=== PATIENT | female | born 1995 | race Caucasian/White ===

== ENCOUNTER → 2016-11-03 | Outpatient (CLI) | payer BC ==
[2016-11-03 16:06] LABS: BASO % 0.1 %; BASO ABS # 0.01 K/uL (0-0.2); COMPLETE YES; EOS % 1.9 %; HEMATOCRIT 38.9 % (37-47); IG% 0.2 %; LYMPH % 7.9 %; LYMPH ABS # 0.92 K/uL (1.2-3.4); MEAN CELL VOLUME 88.4 fL (80-100); MEAN CORPUSCULAR HEMOGLOBIN 29.8 pg (25-34); MEAN CORPUSCULAR HGB CONC 33.7 g/dl (32-36); MEAN PLATELET VOLUME 10.5 fL (7.4-10.4); MONO % 4.5 %; NEUT % 85.4 %; PLATELET COUNT 311 K/uL (130-400); WHITE BLOOD COUNT 11.61 K/uL (4.8-10.8)
[2016-11-03 18:40] LABS: URINE APPEARANCE CLEAR (CLEAR); URINE BILIRUBIN NEG (NEG); URINE COLOR YELLOW; URINE NITRITE NEG (NEG); URINE SPECIFIC GRAVITY 1.018 (1.000-1.030); UROBILINOGEN NEG (NEG)
[2016-11-03 18:55] LABS: MANUAL MICROSCOPIC REQUIRED? NO; REVIEW REQ? NO
[2016-11-05 22:59] LABS: CHLAMYDIA TRACH RNA*** NOT DETECTED (NOT DETECTED); GC (NEIS GONORRHOEAE)RNA** NOT DETECTED (NOT DETECTED)
== END | disposition home or self-care (01) ==
LOC: C.LAB1850 15:22
PROVIDERS: ATTEND Obstetrics & Gynecology
DX: Z34.01 Encounter for supervision of normal first pregnancy, first trimester (principal)

== ENCOUNTER → 2016-12-31 | Outpatient (CLI) | payer BC ==
[2016-12-31 12:04] LABS: GTGD 50 Grams
== END | disposition home or self-care (01) ==
LOC: C.LAB1850 09:17
PROVIDERS: ATTEND Obstetrics & Gynecology
DX: Z34.02 Encounter for supervision of normal first pregnancy, second trimester (principal)

== ENCOUNTER 2017-03-01 03:04 | Outpatient (CLI) | payer BC ==
[~2017-03-01] VITALS: Ht 165.1 cm; Wt 71.8 kg
[2017-03-01 03:32] VITALS: Ht 165.1 cm; Wt 71.8 kg
[2017-03-01] MEDS ORDERED: PRENTAB26 PO (03:32)
== END 2017-03-01 04:59 | disposition home or self-care (01) ==
LOC: C.OPB 03:04 → C.LD 03:04 → C.OPB 04:59
PROVIDERS: ATTEND Obstetrics & Gynecology
DX: O46.92 Antepartum hemorrhage, unspecified, second trimester (principal); Z3A.25 25 weeks gestation of pregnancy

== ENCOUNTER → 2017-03-26 | Outpatient (CLI) | payer BC ==
[~2017-03-26] MED LIST: PRENTAB26 PO
[2017-03-26 12:10] LABS: HEMATOCRIT 38.8 % (37-47)
== END | disposition home or self-care (01) ==
LOC: C.LAB1850 09:54
PROVIDERS: ATTEND Obstetrics & Gynecology
DX: Z34.03 Encounter for supervision of normal first pregnancy, third trimester (principal)

== ENCOUNTER 2017-06-03 07:32 | Inpatient (IN) | payer BC ==
[~2017-06-03] VITALS: Ht 165.1 cm; Wt 82.3 kg
[2017-06-03] MEDS ORDERED: LACTATED RINGER'S 1000ML 1,000 ML IV PRN (08:16)
[2017-06-03] MEDS ORDERED: PENICILLIN G POTASSIUM IV 6 MU in DEXTROSE 5% 250ML 250 ML IV ONE (08:30)
[2017-06-03 08:46] LABS: HEMATOCRIT 36.9 % (37-47); HEMOGLOBIN 12.5 g/dL (12.0-16.0); MEAN CELL VOLUME 88.5 fL (80-100); MEAN CORPUSCULAR HGB CONC 33.9 g/dl (32-36); MEAN PLATELET VOLUME 11.7 fL (7.4-10.4); PLATELET COUNT 220 K/uL (130-400); RED CELL DISTRIBUTION WIDTH CV 13.8 % (11.5-14.5); RED CELL DISTRIBUTION WIDTH SD 44.9 fL (36.4-46.3); WHITE BLOOD COUNT 9.38 K/uL (4.8-10.8)
[2017-06-03] MEDS: LACTATED RINGER'S 1000ML 1,000 ML IV SCH ×2 (08:56→20:57)
[2017-06-03] MEDS ORDERED: MISOPROSTOLTAB 50 MCG TAB PO ONE (09:30)
[2017-06-03 10:03] VITALS: Ht 165.1 cm; Wt 82.3 kg
[2017-06-03] MEDS: PENICILLIN G POTASSIUM IV 3 MU in DEXTROSE 5% 100ML 100 ML IV PRN ×3 (13:02→21:21)
[2017-06-03] MEDS ORDERED: LACTATED RINGER'S 1000ML 500 ML IV PRN ×3 (13:54→23:29)
[2017-06-03] MEDS ORDERED: OXYTOCIN 30 UNITS/500ML NSS IV PRN (14:00)
[2017-06-03] MEDS ORDERED: BUTORPHANOL TARTRATE 1 MG/ML VIAL IV PRN (15:45)
[2017-06-03] MEDS ORDERED: FENTANYL CITRATE INJ 50 MCG/1 ML 2 ML VIAL ONE (18:11)
[2017-06-03] MEDS ORDERED: BUPIVACAINE 0.25% 30 ML VIAL ONE (18:11)
[2017-06-03] MEDS ORDERED: EpHEDrine SULFATE INJ 50 MG/ML AMP ONE (18:11)
[2017-06-03] MEDS ORDERED: FENTANYL 2MCG/ML ROPIV 1.25MG/ML 100ML BAG EPI ONE (18:12)
[2017-06-03] MEDS ORDERED: EpHEDrine SULFATE INJ 50 MG/ML AMP IV PRN ×3 (19:00→23:30)
[2017-06-03] MEDS ORDERED: FENTANYL 2MCG/ML ROPIV 1.25MG/ML 100ML BAG EPI PRN (19:00)
[2017-06-03] MEDS ORDERED: NALOXONE HCL INJ 0.4 MG/1 ML VIAL/CARP IV PRN (19:00)
[2017-06-03] MEDS ORDERED: LACTATED RINGER'S 1000ML 1,000 ML IV SCH (23:14)
[2017-06-03] MEDS ORDERED: CITRIC ACID/SODIUM CITRATE 15 ML UDC PO ONE (23:15)
[2017-06-03] MEDS ORDERED: MoRPHine SULFATE PF 1 MG/ML 10 ML AMP/VIAL ONE (23:19)
[2017-06-03] MEDS ORDERED: CEFAZOLIN IV 2,000 MG in SYRINGE 0 ML IV STA (23:25)
[2017-06-03] MEDS ORDERED: NALOXONE HCL INJ 1 MG in SODIUM CHLORIDE 0.9% 1000ML 1,000 ML IV PRN ×4 (23:29)
[2017-06-03] MEDS ORDERED: SODIUM CHLORIDE 0.9% 1000ML 1,000 ML IV PRN (23:29)
[2017-06-03] MEDS ORDERED: NALOXONE HCL INJ 0.08 MG in SYRINGE 1.8 ML IV PRN (23:29)
[2017-06-03] MEDS ORDERED: ATROPINE SULFATE 0.1 MG/ML 5ML SYR IV PRN (23:30)
[2017-06-03] MEDS ORDERED: MoRPHine SULFATE PF 1 MG/ML 10 ML AMP/VIAL EPI PRN (23:30)
[2017-06-03] MEDS ORDERED: ONDANSETRON INJ 2 MG/ML 2 ML VIAL IV PRN ×2 (23:30)
[2017-06-03] MEDS ORDERED: NALOXONE HCL 0.4 MG/1 ML VIAL/CARP IV PRN (23:30)
[2017-06-03] MEDS ORDERED: DiphenhydrAMINE HCL 50 MG/ML VIAL IV PRN (23:30)
[2017-06-03] MEDS ORDERED: KETOROLAC TROMETHAMINE 30 MG/ML VIAL IV. PRN (23:30)
[2017-06-03] MEDS ORDERED: NALBUPHINE HCL INJ 10 MG/ML AMP IV PRN (23:30)
[2017-06-03] MEDS ORDERED: PROMETHAZINE HCL INJ 12.5 MG in SODIUM CHLORIDE 0.9% 50ML 50 ML IV PRN ×4 (23:30)
[2017-06-03] MEDS ORDERED: NO NARCOTICS OR SEDATIVES SCH (23:30)
[2017-06-03] MEDS ORDERED: MEPERIDINE HCL 25 MG/ML CARP IV PRN ×2 (23:30)
[2017-06-03] MEDS ORDERED: PHENYLEPHRINE 100MCG/ML 5ML SYR IV PRN (23:30)
[2017-06-03] MEDS ORDERED: METOCLOPRAMIDE HCL INJ 5 MG/ML 2 ML VIAL ONE (23:53)
[2017-06-03] MEDS ORDERED: SUCCINYLCHOLINE CHLORIDE 20 MG/ML 10 ML VIAL IV ONE (23:53)
[2017-06-03] MEDS ORDERED: OXYTOCIN INJ 10 UNITS/ML VIAL ONE (23:53)
[2017-06-03] MEDS ORDERED: PROPOFOL IV EMULSION 10 MG/ML 20 ML VIAL IV ONE (23:53)
[2017-06-03] MEDS ORDERED: ONDANSETRON INJ 2 MG/ML 2 ML VIAL ONE (23:53)
[2017-06-04] VITALS (22 sets, daily range): BP systolic 112–132; BP diastolic 68–87; PULSE 79–87; TEMP 36.4–36.8; O2SAT 95–100
[2017-06-04] MEDS ORDERED: DC INTRASPINAL MORPHINE SCH
[2017-06-04] MEDS ORDERED: OXYTOCIN INJ 10 UNITS/ML VIAL ONE ×2 (00:22)
[2017-06-04] MEDS ORDERED: PHENYLEPHRINE 100MCG/ML 5ML SYR ONE (00:22)
--- NOTE | 2017-06-04 00:43 | [facility] Post Operative Brief Note ---
Immediate Operative Summary Operative Date Jun 04, 2017. Pre-Operative Diagnosis intolerance to labor, remote to delivery Post-Operative Diagnosis intolerance to labor, remote to delivery Procedure(s) Performed Primary Low Transverse Section for delivery of a live female child at [address] Blanco Cashier Assistant Surgeon(s) Akila Garland, CHRIS Estimated Blood Loss 600cc Findings Consistent with Post-Op Diagnosis Specimens Placenta (Hold) Cord Blood Cord Gases Drains smith clear yellow Anesthesia Type L&D Only EPID Exist Complication(s) none Disposition Accompanied Pt To Recover: no Disposition: L&D
--- NOTE | 2017-06-04 00:53 | [facility] Operative Report ---
Operative Report Operative Date Jun 04, 2017. Pre-Operative Diagnosis intolerance to labor, remote to delivery Post-Operative Diagnosis intolerance to labor, remote to delivery Procedure(s) Performed Primary Low Transverse Section for delivery of a live female child at [address] Blanco Bee Breeder Surgeon(s) Akila Garland RN Estimated Blood Loss 600cc Findings Viable female , Apgars 9/9, Weight 6#5. Nuchal cord x 1. Uterus, tubes, ovaries normal. Specimens Placenta (Hold) Cord Blood Cord Gases Drains smith clear yellow Anesthesia Type L&D Only EPID Exist Complication(s) none Disposition no L&D Indications 22yo presented with premature rupture of membranes at approximately midnight on 06/03/2017. She presented to the hospital at about 8 AM, at that time her cervix was 1-2 cm. She was given 1 dose of oral Cytotec, developed regular contractions, and was started on Pitocin. She then developed recurrent variable decelerations that were not responsive to all resuscitative measures, including amnioinfusion. At that time she was dilated to 4 cm, and decision was made to proceed to OR for nonreassuring heart tones, intolerance to labor, and being remote from delivery. Description of Procedure The patient was seen in the labor and delivery room where risks, benefits, alternatives to surgery were reviewed. She agreed to section. Informed consent was obtained. All questions were answered. She was then taken to the operating room, where 2 g of Ancef were administered and epidural was redosed. She is prepared and draped in the usual sterile fashion in the supine position with a leftward tilt. Timeout was confirmed. Adequate anesthesia was confirmed. A Pfannenstiel skin incision was made with a scalpel and carried through to the underlying layer of fascia, fascia was nicked at midline and bluntly dissected bilaterally. The superior aspect of the fascial incision was grasped with Javier clamps 2, elevated off the underlying rectus abdominis muscles, and dissected bluntly and sharply. In a similar fashion, the inferior aspect of the fascial incision was dissected. The rectus abdominis muscles were at midline, and the peritoneum was entered bluntly digitally. The peritoneal incision was extended bluntly. The bladder blade was placed, a bladder flap was created with Metzenbaum scissors, the bladder blade was replaced, and a new scalpel was used to create a low transverse hysterotomy incision. This incision was extended bluntly cephalad caudad, and the head was delivered from a cephalic presentation. Nuchal cord 1 was noted and easily reduced, and the anterior shoulder was delivered followed by the posterior shoulder followed by the body. A spontaneous cry was heard and the 's mouth and nose were suctioned with bulb syringe. The cord was doubly clamped and cut, the was handed off to waiting safety analyst, and a cord segment was retained for cord gases. Cord blood was obtained, and the placenta was delivered spontaneously intact with a three- vessel cord. The uterus was exteriorized, and was swept of all clots and debris. The hysterotomy incision was reapproximated using 0 Vicryl in a running locked stitch. A second layer of the same suture was used to imbricate the incision. Posterior uterus uterus was evaluated and the cul-de-sac was cleared of clots and debris. The uterus was placed and back inside the abdomen , and gutters were cleared of all clots and debris. The hysterotomy was evaluated again and noted to be hemostatic. The fascial incision was reapproximated using 0 Vicryl in a running stitch. The subcu teeniest tissue was irrigated and reapproximated using 2-0 plain gut suture. The skin incision was reapproximated using 4-0 Vicryl in a subcuticular fashion. Steri-Strips and bandage were applied, the patient tolerated the procedure well, and was taken to her labor and delivery room to recover. Sponge, instrument and needle counts were correct at the conclusion of the case. I attest to the content of the Intraoperative Record and any orders documented therein. Any exceptions are noted below.
--- NOTE | 2017-06-04 01:31 | Anesthesiology Progress Note ---
Anesthesia Post Op Note Date & Time Jun 04, 2017 at 01:31 Vital Signs Pain Intensity: 0.0 Notes Mental Status: alert / awake / arousable, participated in evaluation Pt Amnestic to Procedure: Yes Nausea / Vomiting: adequately controlled Pain: adequately controlled Airway Patency, RR, SpO2: stable & adequate BP & HR: stable & adequate Hydration State: stable & adequate Anesthetic Complications: no major complications apparent
[2017-06-04] MEDS: KETOROLAC TROMETHAMINE 30 MG/ML VIAL IV. PRN ×2 (02:03→15:38)
[2017-06-04] MEDS ORDERED: OXYTOCIN INJ 30 UNITS in LACTATED RINGER'S 1000ML 1,000 ML IV SCH (02:38)
[2017-06-04] MEDS ORDERED: LACTATED RINGER'S 1000ML 1,000 ML IV SCH (02:38)
[2017-06-04] MEDS ORDERED: HYDROCORTISONE ACETATE 25 MG SUPP PR PRN (02:45)
[2017-06-04] MEDS ORDERED: LANOLIN OINT EXT PRN (02:45)
[2017-06-04] MEDS ORDERED: BENZOCAINE 20% AER SPR 82.5 GM CAN EXT PRN (02:45)
[2017-06-04] MEDS ORDERED: MAGNESIUM HYDROXIDE SUSP 30 ML UDC PO PRN (02:45)
[2017-06-04] MEDS ORDERED: SUPERCREAM 0.870 % 15GM JAR EXT PRN (02:45)
[2017-06-04] MEDS ORDERED: PROMETHAZINE HCL INJ 25 MG in SODIUM CHLORIDE 0.9% 50ML 50 ML IV PRN (02:45)
[2017-06-04] MEDS ORDERED: CEFAZOLIN IV 2,000 MG in DEXTROSE 5% 50ML 50 ML IV SCH (06:00)
--- NOTE | 2017-06-04 06:35 | Progress Note ---
Subjective Jun 04, 2017. Subjective conversation w/ patient, physical exam, chart review, lab review Ambulation: limited ambulation Voiding: smith catheter in place Passing Gas: Yes Diet Tolerance: Clear Liquids Lochia: Moderate Feeding Type: Breast Feeding Review of Systems Constitutional: No fever, No chills, No sweats Respiratory: No cough, No shortness of breath Cardiac: No chest pain, No palpitations Abdomen: No pain, No nausea, No vomiting Female : No dysuria Objective Vital Signs Date Time Temp Pulse Resp B/P (MAP) Pulse Ox O2 Delivery O2 Flow Rate FiO2 06/04/17 06:00 18 97 06/04/17 05:00 18 95 06/04/17 04:00 18 98 06/04/17 03:10 96 Room Air 06/04/17 03:10 20 96 06/04/17 03:10 36.7 80 20 126/80 (95) 96 Room Air Physical Exam General Appearance: WELL-APPEARING, WD/WN, NO APPARENT DISTRESS Respiratory/Chest: lungs clear, no respiratory distress Cardiovascular: regular rate, rhythm, no murmur Abdomen: non tender, soft Fundus: Firm, Relation to Umbilicus (at the u) Incision Description: Clean, Dry & Intact (dressing is intact) Extremities: non-tender, normal inspection Laboratory Results Last 24 Hours Test 06/03/17 08:28 White Blood Count 9.38 K/uL Red Blood Count 4.17 M/uL Hemoglobin 12.5 g/dL Hematocrit 36.9 % Mean Corpuscular Volume 88.5 fL Mean Corpuscular Hemoglobin 30.0 pg Mean Corpuscular Hemoglobin Concent 33.9 g/dl RDW Standard Deviation 44.9 fL RDW Coefficient of Variation 13.8 % Platelet Count 220 K/uL Mean Platelet Volume 11.7 fL Assessment and Plan Post-Op Day#: 1 Continue Routine Care: 22 yo, F. , A+/GBS+/RI, post op day 1, delivered shortly before midnight on 06/03. Doing well; has not ambulated yet. Smith catheter is in place. Vitals reviewed, WNL. Hgb 12.5 on admission, pending today. Plan; 1. Recovery from csection; Remove smith, advance diet, encourage ambulation, support bf, monitor lochia, follow i/o's and vitals Resident Physician Supervision Note: I was present with Dr. Escobar during the history and exam. I discussed the case with the resident and agree with the findings and plan as documented in the note. Any exceptions or clarifications are listed here: POD#1, overnight. Delivery of baby just before midnight. Doing well. Plans for smith out later today. Documented By: Ainsley Blanco
--- NOTE | 2017-06-04 06:45 | Discharge Instructions ---
Discharge Instructions Date of Service Jun 04, 2017. Admission Reason for Admission: Check Ruptured Membranes Discharge Discharge Diagnosis / Problem: csectiom Discharge Goals Goal(s): Routine recovery after Medications Continue Dispensed Medications: supercream, dermaplast, tucks, lansinoh Activity Recommendations Activity Limitations: per Instructions/Follow-up section . Instructions / Follow-Up Instructions / Follow-Up ACTIVITY RECOMMENDATIONS: * Gradual return to full activity over the next 2-3 weeks. * No lifting - nothing heavier than baby over the next 2-3 weeks. * Do not engage in vigorous exercise, sexual activity or sports until cleared by your physician. * Do not drive or operate any motorized equipment until cleared by your physician. * You may shower/bathe daily. MEDICATIONS: For discomfort or pain, you may use Acetaminophen (Tylenol), Ibuprofen (Advil), or Naproxen (Aleve) following the package directions. For constipation you may use Colace following the package directions. BREAST CARE: If you are not breast feeding: * Wear a supportive bra 24 hours a day for one to two weeks. * Avoid stimulating your breasts and nipples as much as possible during the first few weeks after delivery. * When taking a shower, have the warm water hit your back, not breasts. * When your breasts feel full, apply ice packs. Usually three to four times a day helps ease the discomfort. * Take a mild pain medication (Tylenol / Motrin) when you are uncomfortable. If breast feeding: * Use breast milk to lubricate nipples. Lansinoh cream may be used for sore nipples. You do not need to remove cream prior to breast feeding. If using a different brand of cream, check the label for directions regarding removal of cream prior to nursing. * Wear a supportive bra. * If having problems with breasts or breast feeding, call a operational risk consultant or your health care provider. SPECIAL CARE INSTRUCTIONS: When you are discharged from the hospital, it is important for you to follow the instructions listed below: * During the first week at home, you should be able to care for yourself and your baby. In addition, the usual light household activities are encouraged. * Limit your activities to the way you feel. Do not try to clean the house or move furniture. Be sensible. * If you actively engage in sports and have done so up until the time of your delivery, you may resume these activities as soon as you feel able. This may take up to one month or even longer. Use good judgment. * Continue to take your vitamins for at least six weeks after the of your baby. * Your diet need not be limited unless you were on a special diet before your delivery. Breast-feeding mothers need around 2500 calories per day and at least 64-80 ounces of fluid per day (8 to 10 glasses). * You should eat foods from the four major food groups. Crash diets or fad diets are to be avoided. Eating lean meats, fresh fruits and vegetables, low-fat dairy products, high fiber foods and a regular exercise program, will help you get back to your pre- weight without putting your health at risk. * Constipation is sometimes a problem after delivery. Take a mild laxative as needed. If breast feeding, Milk of Magnesia is acceptable to use. You may use a suppository or Fleets enema. * A daily shower or tub bath is suggested. Wash incision daily with warm soapy water and pat dry. It doesn't need to be covered unless drainage is present. * A bloody vaginal discharge will usually continue until around four weeks . A small amount of bleeding may continue for as long as six weeks. Vaginal discharge changes from the bright red bleeding after delivery to pink then brownish and finally yellowish-pink before becoming white and disappearing. * Bleeding may increase with activity. Your first period may come in 4-8 weeks. If you are breast feeding, your period may be delayed even longer. * [place] (sex) can begin whenever both you and your partner feel comfortable and do not have any form of genital infection. It is recommended that you wait at least six weeks for internal and external healing to occur. If you have questions, please talk to your health care practitioner. A condom should be used to prevent infection and . * Foreplay, gentle intercourse and lubrication is very important the first several times to prevent pain. A water-based lubricant such as K-Y jelly or Astroglide may be used. * If you have RH negative blood and your baby is RH positive, you will receive RHOGAM by injection prior to discharge. The nurse will give you a card to keep with you that has the date and place that you received RHOGAM after delivery. * During your care, you had a Rubella screen done to check for the presence of rubella antibodies in your blood. If your test was negative, you will receive a Rubella vaccine prior to discharge. This vaccine may cause a fever, soreness at the injection site and flu-like symptoms. If these symptoms persist, notify your health care practitioner. is not advised for one month after a Rubella vaccine. * Verbalizes understanding of car seat law as reviewed with patient nursing. * Car Seat hand-out given and reviewed with patient by nursing. * Shaken baby information reviewed with patient by nursing. Call you doctor if: * Heavy bleeding (saturating several pads an hour) or passing clots the size of your fist. * A fever >101 degrees F (38.3 degrees C) on two occasions four hours apart and /or chills. * Unusual pain in the pelvic or vaginal areas. * Call the doctor for any increased redness, drainage or swelling around the incision and any pain unrelieved by prescribed pain medication. * "Baby Blues" lasting longer than two weeks. If you have any questions or concerns, call your health care practitioner at . FOLLOW UP VISIT: * Please call the office at to schedule a 6 week examination. It is important you keep this appointment. It is important for you to make arrangements for either yearly or twice yearly check-ups thereafter. Current Hospital Diet Patient's current hospital diet: Regular OB Diet Discharge Diet Recommended Diet: Regular Diet, Regular OB Diet Procedures Procedures Performed: Primary Low Transverse Section for delivery of a live female child at 2355 Pending Studies Studies pending at discharge: no Medical Emergencies . Who to Call and When: Medical Emergencies: If at any time you feel your situation is an emergency, please call [phone] immediately. . Non-Emergent Contact Non-Emergency issues call your: Primary Care Provider, [employer] Accountant . . "Provider Documentation" section prepared by Shaw Escobar. .
[2017-06-04] MEDS: SIMETHICONE 80 MG CHEW PO SCH ×4 (08:11→20:03)
[2017-06-04] MEDS: DOCUSATE SODIUM 100 MG CAP PO SCH ×2 (08:11→20:03)
[2017-06-04] MEDS ORDERED: KETOROLAC TROMETHAMINE 30 MG/ML VIAL IV. PRN (17:00)
[2017-06-04] MEDS ORDERED: DiphenhydrAMINE HCL 50 MG/ML VIAL IV PRN (17:00)
[2017-06-04] MEDS ORDERED: ONDANSETRON INJ 2 MG/ML 2 ML VIAL IV PRN (17:00)
[2017-06-04] MEDS ORDERED: OXYCODONE/ACETAMINOPHEN 5-325 TAB PO PRN (17:00)
[2017-06-05] MEDS: IBUPROFEN 600 MG TAB PO PRN ×4 (02:57→20:40)
[2017-06-05] MEDS: OXYCODONE/ACETAMINOPHEN 5-325 TAB PO PRN ×4 (02:58→20:41)
[2017-06-05 06:24] LABS: BASO % 0.1 %; BASO ABS # 0.01 K/uL (0-0.2); EOS % 0.9 %; EOS ABS # 0.09 K/uL (0-0.5); HEMATOCRIT 33.9 % (37-47); HEMOGLOBIN 11.3 g/dL (12.0-16.0); IG# 0.03 K/uL (0.00-0.02); LYMPH % 8.3 %; LYMPH ABS # 0.85 K/uL (1.2-3.4); MEAN CELL VOLUME 90.6 fL (80-100); MEAN CORPUSCULAR HEMOGLOBIN 30.2 pg (25-34); MEAN CORPUSCULAR HGB CONC 33.3 g/dl (32-36); MEAN PLATELET VOLUME 10.8 fL (7.4-10.4); MONO % 6.8 %; NEUT % 83.6 %; NEUT ABS # 8.58 K/uL (1.4-6.5); PLATELET COUNT 183 K/uL (130-400); RED CELL DISTRIBUTION WIDTH CV 14.4 % (11.5-14.5); RED CELL DISTRIBUTION WIDTH SD 47.5 fL (36.4-46.3); WHITE BLOOD COUNT 10.26 K/uL (4.8-10.8)
--- NOTE | 2017-06-05 06:48 | Progress Note ---
Subjective Jun 05, 2017. Subjective conversation w/ patient, physical exam, chart review, lab review Ambulation: ambulating normally Voiding: no voiding problems Passing Gas: Yes Diet Tolerance: Regular Diet Lochia: Moderate Feeding Type: Breast Feeding Review of Systems Constitutional: No fever, No chills Respiratory: No cough, No shortness of breath Cardiac: No chest pain, No palpitations Abdomen: No pain, No nausea, No vomiting Female : No dysuria Objective Vital Signs Date Time Temp Pulse Resp B/P (MAP) Pulse Ox O2 Delivery O2 Flow Rate FiO2 06/04/17 23:35 97 Room Air 06/04/17 23:35 36.8 82 18 112/68 (83) 97 Room Air 06/04/17 19:30 36.4 87 20 130/85 (100) Room Air 06/04/17 17:00 20 98 06/04/17 16:00 20 99 06/04/17 15:30 20 98 06/04/17 15:30 36.5 85 20 114/69 (84) Room Air 06/04/17 15:30 98 Room Air 06/04/17 15:00 20 98 06/04/17 14:00 20 97 06/04/17 13:02 18 98 06/04/17 12:08 36.6 79 16 132/87 (102) 98 Room Air 06/04/17 12:04 20 100 06/04/17 12:00 16 98 06/04/17 10:05 16 95 06/04/17 09:35 96 Room Air 06/04/17 09:01 14 96 06/04/17 08:05 14 97 06/04/17 07:54 36.7 06/04/17 07:40 99 Room Air 06/04/17 07:30 36.7 81 14 129/80 (96) 97 Room Air 06/04/17 07:30 36.7 81 14 129/80 (96) 97 Room Air Physical Exam General Appearance: WELL-APPEARING, WD/WN, NO APPARENT DISTRESS Respiratory/Chest: lungs clear, no respiratory distress Cardiovascular: regular rate, rhythm, no murmur Abdomen: non tender, soft Fundus: Firm, Relation to Umbilicus (2 cm below ) Incision Description: Clean, Dry & Intact Extremities: non-tender, normal inspection Laboratory Results Last 24 Hours Test 06/05/17 06:10 White Blood Count 10.26 K/uL Red Blood Count 3.74 M/uL Hemoglobin 11.3 g/dL Hematocrit 33.9 % Mean Corpuscular Volume 90.6 fL Mean Corpuscular Hemoglobin 30.2 pg Mean Corpuscular Hemoglobin Concent 33.3 g/dl Platelet Count 183 K/uL Mean Platelet Volume 10.8 fL Neutrophils (%) (Auto) 83.6 % Lymphocytes (%) (Auto) 8.3 % Monocytes (%) (Auto) 6.8 % Eosinophils (%) (Auto) 0.9 % Basophils (%) (Auto) 0.1 % Neutrophils # (Auto) 8.58 K/uL Lymphocytes # (Auto) 0.85 K/uL Monocytes # (Auto) 0.70 K/uL Eosinophils # (Auto) 0.09 K/uL Basophils # (Auto) 0.01 K/uL RDW Standard Deviation 47.5 fL RDW Coefficient of Variation 14.4 % Immature Granulocyte % (Auto) 0.3 % Immature Granulocyte # (Auto) 0.03 K/uL Assessment and Plan Post-Op Day#: 2 Continue Routine Care: 22 yo, F. , A+/GBS+/RI, post op day 2, delivered shortly before midnight on 06/03. Doing well clinically. Vitals reviewed, WNL. Hgb 12.5 on admission, pending today. Plan; 1. Recovery from csection; Remove smith, advance diet, encourage ambulation, support bf, monitor lochia, follow i/o's and vitals 2. Discussed dc planning Resident Physician Supervision Note: I interviewed and examined the patient. Discussed with Dr. Escobar and agree with findings and plan as documented in the note. Any exceptions or clarifications are listed here: Routine care, doing well Documented By: Shade Amado
[2017-06-05 08:55] VITALS: BP 121/80; PULSE 67; TEMP 36.8; O2SAT 99
[2017-06-05] MEDS: DOCUSATE SODIUM 100 MG CAP PO SCH ×2 (09:03→20:39)
[2017-06-05] MEDS: SIMETHICONE 80 MG CHEW PO SCH ×4 (09:03→20:39)
[2017-06-05 16:05] VITALS: BP 131/85; PULSE 64; TEMP 36.5; O2SAT 99
[2017-06-05] MEDS ORDERED: BISACODYL 5 MG TABEC PO ONE (22:00)
[2017-06-05 23:50] VITALS: BP 142/88; PULSE 76; TEMP 36.4; O2SAT 100
[2017-06-06] MEDS: IBUPROFEN 600 MG TAB PO PRN ×4 (00:46→20:38)
[2017-06-06] MEDS: OXYCODONE/ACETAMINOPHEN 5-325 TAB PO PRN ×4 (00:47→20:39)
[2017-06-06 07:07] LABS: HEMATOCRIT 33.1 % (37-47); HEMOGLOBIN 10.9 g/dL (12.0-16.0)
--- NOTE | 2017-06-06 07:16 | Progress Note ---
Subjective Jun 06, 2017. Subjective conversation w/ patient, physical exam, chart review, lab review Ambulation: ambulating normally Voiding: no voiding problems Passing Gas: Yes Diet Tolerance: Regular Diet Lochia: Small Feeding Type: Breast Feeding Pain: good pain control Review of Systems Constitutional: No fever, No chills Respiratory: No cough, No shortness of breath Cardiac: No chest pain, No palpitations Abdomen: No pain, No nausea, No vomiting Female : No dysuria Objective Vital Signs Date Time Temp Pulse Resp B/P (MAP) Pulse Ox O2 Delivery O2 Flow Rate FiO2 06/05/17 23:50 36.4 76 20 142/88 (106) Room Air 06/05/17 23:50 100 Room Air 06/05/17 16:05 36.5 64 18 131/85 (100) 99 Room Air 06/05/17 16:05 99 Room Air 06/05/17 08:55 Room Air 06/05/17 08:55 36.8 67 16 121/80 (94) 99 Room Air Physical Exam General Appearance: WELL-APPEARING, WD/WN, NO APPARENT DISTRESS Respiratory/Chest: lungs clear, no respiratory distress Cardiovascular: regular rate, rhythm, no murmur Abdomen: non tender, soft Fundus: Firm, Relation to Umbilicus (1 cm below the u) Incision Description: Clean, Dry & Intact Extremities: non-tender, normal inspection Laboratory Results Last 24 Hours Test 06/06/17 06:46 Hemoglobin 10.9 g/dL Hematocrit 33.1 % Assessment and Plan Post-Op Day#: 3 Continue Routine Care: 22 yo, F. , A+/GBS+/RI, post op day 3, delivered shortly before midnight on 06/03. Doing well clinically. Vitals reviewed, WNL. Hgb 12.5 on admission, 11.3 yesterday. Plan; 1. Recovery from csection; encourage ambulation, support bf, monitor lochia 2. Discussed dc planning Resident Physician Supervision Note: I was present with Dr. Escobar during the history and exam. I discussed the case with the resident and agree with the findings and plan as documented in the note. Any exceptions or clarifications are listed here: Doing well. Wants to go home but not sure if baby ready due to loss of weight. Instructions reviewed. F/u 6 wks pp check. Pain script prepared. Documented By: Liya Pavon
[2017-06-06 07:30] VITALS: BP 142/88; PULSE 69; TEMP 36.3; O2SAT 98
[2017-06-06] MEDS ORDERED: OXYC-57 PO (07:33)
[2017-06-06] MEDS ORDERED: MTR600X PO (07:33)
[2017-06-06] MEDS: SIMETHICONE 80 MG CHEW PO SCH ×4 (08:49→19:39)
[2017-06-06] MEDS: DOCUSATE SODIUM 100 MG CAP PO SCH ×2 (08:49→19:39)
[2017-06-06 15:10] VITALS: BP 128/82; PULSE 80; TEMP 36.7; O2SAT 97
[2017-06-06 23:22] VITALS: BP 121/76; PULSE 81; TEMP 36.6; O2SAT 99
[2017-06-07] MEDS: IBUPROFEN 600 MG TAB PO PRN ×2 (02:10→08:10)
[2017-06-07] MEDS: OXYCODONE/ACETAMINOPHEN 5-325 TAB PO PRN ×2 (02:11→08:10)
--- NOTE | 2017-06-07 07:34 | Progress Note ---
Subjective Jun 07, 2017. Subjective conversation w/ patient, physical exam, lab review Ambulation: ambulating normally Voiding: no voiding problems Diet Tolerance: Regular Diet Feeding Type: Breast Feeding Objective Vital Signs Date Time Temp Pulse Resp B/P (MAP) Pulse Ox O2 Delivery O2 Flow Rate FiO2 06/06/17 23:22 36.6 81 16 121/76 (91) 99 Room Air 06/06/17 23:22 Room Air 06/06/17 15:10 Room Air 06/06/17 15:10 36.7 80 16 128/82 (97) 97 Room Air Physical Exam General Appearance: WELL-APPEARING Abdomen: non tender Fundus: Firm Incision Description: Clean, Dry & Intact Extremities: no calf tenderness Assessment and Plan Post-Op Day#: 4 Continue Routine Care: Meets discharge criteria reviewed discharge instructions will set her up for prescriptions of pain control
[2017-06-07 07:40] VITALS: BP 131/88; PULSE 80; TEMP 36.4; O2SAT 99
[2017-06-07] MEDS: DOCUSATE SODIUM 100 MG CAP PO SCH (08:09)
[2017-06-07] MEDS: SIMETHICONE 80 MG CHEW PO SCH (08:09)
[2017-06-07 11:00] VITALS: BP_DIAS 88; PULSE 80; TEMP 36.4
--- NOTE | 2017-06-09 16:33 | Discharge Summary ---
Discharge Summary Date of Service Jun 09, 2017. Discharge Summary Admission Date: Jun 03, 2017 at 08:18 Discharge Date: Jun 07, 2017 Discharge Disposition: Home Principal Diagnosis: delivery by PLTCS Procedures: PLTCS Medication Reconciliation New Medications: Ibuprofen (Ibuprofen) 600 Mg Tab 600 MG PO Q6 PRN for Pain, PERKINS, Cramping, or Fever, #40 TAB Oxycodone/Acetaminophen 5MG/325MG (Percocet 5MG/325MG) Tab 1-2 TAB PO Q4H PRN for Pain - Pain Scale 6-10, #20 TAB PAIN Continued Medications: Multivit/Min/Iron/Fol Ac/Pren ( Vitamin) Tab 1 TAB PO DAILY, TAB Discharge Exam Please see progress notes. Hospital Course Admitted with PROM, intolerance to labor, PLTCS, discharged home POD#4. Total Time Spent: Less than 30 minutes This includes examination of the patient, discharge planning, medication reconciliation, and communication with other providers. Discharge Instructions Please refer to the electronic Patient Visit Report (Discharge Instructions) for additional information. Follow-Up 6w office
== END 2017-06-07 11:00 | disposition home or self-care (01) | DRG 766 ==
LOC: C.LD 07:32 → C.OPB 07:32 → C.LD 08:18 → C.OPB 08:18 → C.OBG 06-04 03:21
PROVIDERS: ADMIT Obstetrics & Gynecology; ATTEND Obstetrics & Gynecology
PROC: 10D00Z1 Extraction of Products of Conception, Low, Open Approach (ICD-10-PCS; principal; 2017-06-03 23:11)
DX: O76 Abnormality in fetal heart rate and rhythm complicating labor and delivery (principal); O42.02 Full-term premature rupture of membranes, onset of labor within 24 hours of rupture; O69.81X0 Labor and delivery complicated by cord around neck, without compression, not applicable or unspecified; Z22.330 Carrier of Group B streptococcus; Z3A.38 38 weeks gestation of pregnancy; Z37.0 Single live birth

== ENCOUNTER → 2017-07-06 | Outpatient (CLI) | payer BC ==
[~2017-07-06] MED LIST changes: +MTR600X PO; +OXYC-57 PO
== END | disposition home or self-care (01) ==
LOC: C.PAPS 16:57
PROVIDERS: ATTEND Obstetrics & Gynecology
DX: Z39.2 Encounter for routine postpartum follow-up (principal)

== ENCOUNTER → 2017-07-06 | Outpatient (CLI) | payer BC | END | disposition home or self-care (01) | LOC: C.LABSPEC 17:04 | PROVIDERS: ATTEND Obstetrics & Gynecology | DX: O90.0 Disruption of cesarean delivery wound (principal) ==

== ENCOUNTER 2020-08-13 05:21 | Inpatient (IN) ==
--- NOTE | 2020-08-07 12:01 | Anesthesiology Consultation ---
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 He uses mask when in public. Patient is not vaccinated. No known Covid infection in the past 90 days. No known Covid positive contacts or Covid related symptoms. Preop Covid testing scheduled 08/09/2020 = will await results. 06/03/2017 = epidural used for . History Surgery Operation Date: 08/13/20 07:30 Proposed Procedures p Section - Jackie Lucas MD Height/Weight Height: 5 ft 6 in Weight: 88.904 kg Allergies Allergy/AdvReac Type Severity Reaction Status Date / Time No Known Drug Allergies Allergy Verified 08/07/20 10:45 Medications Home Medications Medication Instructions Recorded Confirmed Last Taken prenat.vits,zunilda,wol-hvme-hcehm 1 tab PO DAILY 01/02/20 08/07/20 Unknown Past Medical History Medical History History of migraine Miscarriage x2 Past Family History Family History Father Thyroid disease Denies family history of Ovarian cancer Breast cancer Colorectal cancer Past Surgical History Surgical History Hx of section S/P cholecystectomy S/P knee surgery Social History Smoking Status: Never smoker Do You Dip or Chew Tobacco: No Hx Alcohol Use: No Hx Substance Use: No substance use type: does not use
--- NOTE | 2020-08-10 17:16 | History & Physical Report ---
Date of Service August 10, 2020 Assessment & Plan (1) Previous delivery affecting , antepartum: 25 y/o presents for preop for planned repeat CS and BTL Discussed indications, risks, benefits, alternatives with risks including infection, bleeding, injury to adjacent structures (bowel, bladder, ureters, blood vessels, nerves, baby), possible need for blood transfusion and/or life saving hysterectomy, VTE. Reviewed specific risk of regret for tubal ligation and permanence of procedure. Consent reviewed in detail w/ pt and signed for repeat CS and BTL after all questions answered to her satisfaction. (2) : History of Present Illness Chief Complaint: Pre-op for repeat CS and BTL Primary Care Provider: Christopher Patel 25 y/o at 38 6/7 wga today w/ VARUN 08/18 by LMP 11/11 presents for pre-op for scheduled repeat CS and BTL on 08/13. 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 - pCS at 38 wks for NRFHT G2 2019 SAB G3 2020 SAB G4 current Menarche 16, q28-30d cycles Denies hx STIs Denies hx abnl pap, last 01/2020 neg cytology Allergies Allergy/AdvReac Type Severity Reaction Status Date / Time No Known Drug Allergies Allergy Verified 08/10/20 16:06 Home Medications Medication Instructions Recorded Confirmed Type prenat.vits,zunilda,kbl-nzrd-cfkzg 1 tab PO DAILY 01/02/20 08/10/20 History Patient History Medical History History of migraine Miscarriage x2 Surgical History Hx of section S/P cholecystectomy S/P knee surgery Family History Father Thyroid disease Denies family history of Ovarian cancer Breast cancer Colorectal cancer Social History Smoking Status: Never smoker Second Hand Exposure: No; Hx Alcohol Use: No Hx Substance Use: No Preferred Language: [place] Communication Ability: Effective 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 Beliefs That Will Affect Care: None marital status: marital status details: Jeet Frias (25) [phone] Current Living Situation: Spouse current occupational status: employed current occupation: [employer] Feels Safe at Home: Yes Physical Exam Constitutional: WD/WN, vitals as above Respiratory: normal respiratory effort; no respiratory distress and no labored breathing Gastrointestinal (Abdomen): Inspection/Auscultation: abdomen normal to inspection Percussion/Palpation: abdomen soft; abdomen nontender and no guarding Genitourinary: OB Exam Abdomen: + fundal height (38) and + heart tones (150) Results & Data ([facility]) Laboratory Results OB Labs: Blood Type A Positive 01/17/20 Antibody Screen NEGATIVE 01/17/20 Hemoglobin 12.4 g/dL (12.0-16.0) 05/31/20 Hematocrit 36.6 % (37-47) L 05/31/20 Mean Corpuscular Volume 89.9 fL (80-100) 01/17/20 Platelet Count 320 K/uL (130-400) 01/17/20 Rubella IgG Antibody Immune (Immune) 01/17/20 Rapid Plasma Reagin Nonreactive (Nonreactive) 01/17/20 Hepatitis B Surface Antigen Neg (Neg) 01/17/20 HIV (1&2) Ab and P24 Ag, 4th Gener Neg (Neg) 01/17/20 Glucose 1 Hour 50 gm Load 101 mg/dl (70-130) 05/31/20 OB Optional Labs: Chlamydia trachomatis RNA NOT DETECTED (NOT DETECTED) 01/17/20 Neisseria gonorrhoeae RNA NOT DETECTED (NOT DETECTED) 01/17/20 Labs Reviewed: (-) cfDNA declined CF/SMA- [facility] GBS+ Diagnostic Findings Anterior placenta Coding Level of Care Code None Diagnoses Previous delivery affecting , antepartum O34.219 Z34.90
[2020-08-13] MEDS ORDERED: SODIUM CHLORIDE 0.9% 250 ML IV PRN (05:27)
[2020-08-13] MEDS: LACTATED RINGER'S 1,000 ML IV SCH ×4 (05:43→19:25)
[2020-08-13] MEDS ORDERED: CITRIC ACID/SODIUM CITRATE 15 ML UDC PO SCH (06:00)
[2020-08-13] MEDS ORDERED: ceFAZolin 2,000 MG in SYRINGE 0 ML IV SCH (06:00)
[2020-08-13 06:01] LABS: Eosinophils # (auto) 0.11 K/uL (0-0.5); Eosinophils % (auto) 1.3 %; Hematocrit (blood only) 35.3 % (37-47); Hemoglobin 11.7 g/dL (12.0-16.0); Immature Granulocytes # (auto) 0.02 K/uL (0.00-0.02); Immature Granulocytes % (auto) 0.2 %; Lymphocytes # (auto) 1.14 K/uL (1.2-3.4); Lymphocytes % (auto) 13.7 %; Mean Corpuscular Hemoglobin 29.1 pg (25-34); Mean Corpuscular Volume 87.8 fL (80-100); Mean Platelet Volume 11.4 fL (7.4-10.4); Monocytes # (auto) 0.43 K/uL (0.11-0.59); Monocytes % (auto) 5.2 %; Neutrophils # (auto) 6.63 K/uL (1.4-6.5); Neutrophils % (auto) 79.6 %; Platelet Count 248 K/uL (130-400); RDW Coefficient of Variation 13.1 % (11.5-14.5); RDW Standard Deviation 42.3 fL (36.4-46.3); Red Blood Count 4.02 M/uL (4.2-5.4); White Blood Count 8.33 K/uL (4.8-10.8)
[2020-08-13 06:05] LABS: Mean Corpuscular Hgb Conc 33.1 g/dL (32-36)
[2020-08-13] MEDS ORDERED: MoRPHine SULFATE PF 1 MG/ML 10 ML AMP/VIAL ONE (06:37)
[2020-08-13] MEDS ORDERED: fentaNYL citrate 100 MCG/2 ML VIAL ONE (06:37)
[2020-08-13] MEDS ORDERED: OXYTOCIN 10 UNITS/ML VIAL ONE (06:37)
--- NOTE | 2020-08-13 07:03 | History & Physical Bridge Note ---
Date of Service August 13, 2020 History & Physical Bridge Note I have examined the patient, reviewed the History & Physical and in the interval since the performance of the History & Physical I have noted the following changes of clinical significance: no changes noted
[2020-08-13] MEDS ORDERED: PHENYLEPHRINE 100MCG/ML 5ML SYR ONE (07:49)
[2020-08-13] MEDS ORDERED: ONDANSETRON INJ 2 MG/ML 2 ML VIAL ONE (07:49)
[2020-08-13] MEDS ORDERED: ePHEDrine sulfate 50 MG/ML SYR ONE (08:01)
[2020-08-13] MEDS ORDERED: ePHEDrine sulfate 50 MG/ML AMP IV PRN (08:23)
[2020-08-13] MEDS ORDERED: diphenhydrAMINE 50 MG/ML VIAL IV PRN (08:23)
[2020-08-13] MEDS ORDERED: ONDANSETRON INJ 2 MG/ML 2 ML VIAL IV PRN (08:23)
[2020-08-13] MEDS ORDERED: NALOXONE HCL 0.4 MG/1 ML VIAL/CARP IV PRN (08:23)
[2020-08-13] MEDS ORDERED: LACTATED RINGER'S 500 ML IV PRN (08:23)
[2020-08-13] MEDS ORDERED: MoRPHine SULFATE PF 1 MG/ML 10 ML AMP/VIAL INT SPINAL ONE (08:23)
[2020-08-13] MEDS ORDERED: MoRPHine SULFATE 2 MG/ML CARP IV PRN (08:23)
[2020-08-13] MEDS ORDERED: PROMETHAZINE HCL 25 MG in SODIUM CHLORIDE 0.9% 50 ML IV PRN (08:23)
[2020-08-13] MEDS ORDERED: NALOXONE HCL 1 MG in SODIUM CHLORIDE 0.9% 1000ML 1,000 ML IV PRN (08:23)
[2020-08-13] MEDS ORDERED: NALOXONE HCL 0.08 MG in SYRINGE 1.8 ML IV PRN (08:23)
[2020-08-13] MEDS ORDERED: KETOROLAC 30 MG/ML VIAL IV PRN (08:23)
[2020-08-13] MEDS ORDERED: NO NARCOTICS OR SEDATIVES SCH (08:30)
[2020-08-13] MEDS ORDERED: SODIUM CHLORIDE 0.9% 1000ML 1,000 ML IV SCH (08:30)
[2020-08-13] MEDS ORDERED: DC INTRASPINAL MORPHINE SCH (08:30)
--- NOTE | 2020-08-13 08:57 | Operative Report ---
PG Post Operative Report Pre & Post Diagnosis Operation Date: 08/13/20 07:30 Pre-Op Diagnosis: Single intrauterine at 39 2/7 wga History of Section x 1 Desires Repeat Section and Bilateral Tubal Ligation Post-Op Diagnosis: Same as Preop I identified the patient and participated in the time-out.: Yes Procedure Operation Date: 08/13/20 07:30 Actual Procedures p Repeat Low Transverse Section in OR # 3; Live Female at 0803(Bilateral), Bilateral tubal ligation - Jackie Lucas MD Surgeon Jackie Lucas MD [employer] Glazer Librado ROLDAN Estimated Blood Loss 750 Findings Consistent with Post-Op Diagnosis Normal appearing uterus, bilateral fallopian tubes and ovaries. Viable female with APGARs of 8 and 9 at 1 and 5 minutes, respectively Fluids 1000ml crystalloid, UOP 300ml by smith catheter Specimens Placenta - Hold Cord Blood Portions Left and Right Fallopian Tubes Drains Smith draining clear urine Anesthesia Type L&D Only Epidural Exists Complications none Disposition Accompanied Patient To Recovery: Yes Disposition: L&D Indications 25 y/o at 39 2/7 wga presents for elective repeat section and bilateral tubal ligation. Had been counseled regarding vs repeat CS and ultimately opted for repeat cesaraen section and tubal ligation. She was counseled regarding risks for the procedure as noted in H&P, specifically risk of regret with tubal ligation due to permanence of procedure. She verbalized un derstanding and consents were signed for above listed procedure. Description of Procedure The patient was taken to the operating room after consents were ensured. The patient was properly identified. Spinal anesthesia was obtained without difficulty. The patient was placed in a dorsal supine position with left lateral tilt, then prepped and draped in normal sterile fashion. Surgical time out was performed. Antibiotics were given for prophylaxis. Anesthesia was tested to ensure adequate surgical levels. Pfannenstiel skin incision was performed using prior scar and carried down to the underlying fascia with a knife. The fascia was then nicked in the midline and extended laterally with pickups and Oliver scissors. Superior portion of the fascia was grasped with Kochers x2 and elevated off the underlying rectus muscles using blunt dissection and scissors. Inferior portion of the fascia was then grasped with Javier clamps x2 and also elevated off the underlying muscles with blunt dissection and scissors. Midline was identified. The peritoneum was then entered and extended to provide adequate room for delivery of baby. The hand was inserted into the abdomen, uterus was noted to be clear of adhesions. Bladder blade was inserted, bladder flap was created in the usual fashion. A low transverse uterine incision was made in the uterus and extended bluntly in a superior to inferior fashion. Amniotomy was made with clear fluid at the time of rupture. head was grasped and elevated through the hysterotomy in an atraumatic fashion. The baby delivered in SHAE position, no nuchal cord. Remainder of the body delivered without incident. Nose and mouth were bulb suctioned on the surgical field. The cord was double clamped and cut, baby was handed off to awaiting pediatrics staff. Cord segment and blood were obtained. Placenta was then expressed from the uterus. The uterus was exteriorized. Several passes were made inside the uterus to remove the remaining membranes. Attention was then turned to the hysterotomy, which was then closed with a running locked suture of 0 Vicryl on a CTX needle. An imbricating layer was then performed using 0-Monocryl. There was noted to be good hemostasis. Attention was then turned to the permanent sterilization portion of the procedure. The left fallopian tube was grasped and followed out the fimbriated end. A 2-0 chromic was passed through an avascular portion of the mesosalpinx and the left tube was ligated using the modified martir method. There was excellent hemostasis. The same was performed on the contralateral side and excellent hemostasis was obtained. The posterior cul-de-sac was then inspected and cleaned of clot and debris. The hysterotomy and tubal sites were again inspected and noted to be hemostatic. The uterus was returned to the abdomen. There was noted to be large amount of rundown and the right and left pericolic gutters were cleaned of all clot and debris. The uterus was re-exteriorized to confirm no areas of active bleeding on tubal sites or in the posterior cul-de-sac and returned to the abdomen. Hysterotomy, tubal sites, and gutters were noted to be hemostatic in situ. Space of Retzius was noted to be hemostatic. The fascia was then closed with a running suture of 0 Vicryl on a CT1 needle. Subcutaneous tissue was copiously irrigated and noted to be hemostatic. Subcutaneous tissue was re-approximated using 2-0 plain gut. The skin was then closed with a running suture of 3-0 Monocryl in a subcuticular fashion. At termination of the procedure, the fundal pressure was applied and a moderate amount of lochia was expressed. Pressure dressing was applied to the patient. She tolerated the procedure well. All sponge, needle, instrument counts were correct x 2. I attest to the content of the Intraoperative Record and any orders documented therein. Any exceptions are noted below. OB Procedure charges OB Charges 92862 C/S w/ Tubal
--- NOTE | 2020-08-13 08:57 | Post Operative Brief Note ---
PG Immediate Post Op with CF Date of Surgery August 13, 2020 Pre & Post Diagnosis Operation Date: 08/13/20 07:30 Pre-Op Diagnosis: History of Section; Desires Repeat Section and Bilateral Tubal Ligation Post-Op Diagnosis: Same as Preop I identified the patient and participated in the time-out.: Yes Procedure Operation Date: 08/13/20 07:30 Actual Procedures p Repeat Low Transverse Section in OR # 3; Live Female at 0803(Bilateral), Bilateral tubal ligation - Jackie Lucas MD Surgeon Jackie Lucas MD Mixing Picker Tender Librado ROLDAN Estimated Blood Loss 750 Findings Consistent with Post-Op Diagnosis Normal appearing uterus, bilateral fallopian tubes and ovaries. Viable female with APGARs of 8 and 9 at 1 and 5 minutes, respectively Fluids 1000ml crystalloid, UOP 300ml by villalpando catheter Specimens Specimen Description: Placenta - Hold Cord Blood Portions Left and Right Fallopian Tubes Drains Villalpando Catheter Anesthesia Type L&D Only Epidural Exists Complications none Disposition Accompanied Patient To Recovery: Yes Disposition: L&D
[2020-08-13] MEDS ORDERED: SENNA 8.6 MG TAB PO PRN (09:58)
[2020-08-13] MEDS ORDERED: BENZOCAINE 20% AER SPR 82.5 GM CAN EXT PRN (09:58)
[2020-08-13] MEDS ORDERED: HYDROCORTISONE ACETATE 25 MG SUPP PR PRN (09:58)
[2020-08-13] MEDS ORDERED: SUPERCREAM 0.870% 15 GM JAR EXT PRN (09:58)
[2020-08-13] MEDS ORDERED: MAGNESIUM HYDROXIDE SUSP 30 ML UDC PO PRN (09:58)
[2020-08-13] MEDS ORDERED: DIPHTHERIA/TETANUS/PERTUSSIS 0.5 ML SYR/VIAL IM ONE (09:58)
[2020-08-13] MEDS ORDERED: OXYTOCIN 20 UNITS in LACTATED RINGER'S 1,000 ML IV SCH (09:58)
--- NOTE | 2020-08-13 10:46 | Anesthesiology Progress Note ---
Date of Service August 13, 2020 Anesthesia Post Procedure Vital Signs Vital Signs: Temp Pulse Resp BP Pulse Ox 08/13/20 10:44 65 115/69 08/13/20 10:42 67 100 08/13/20 10:37 66 99 08/13/20 10:34 73 122/65 08/13/20 10:32 72 98 08/13/20 10:27 71 99 08/13/20 10:25 37.1 C 71 18 119/78 08/13/20 10:22 68 99 08/13/20 10:17 68 100 08/13/20 10:14 64 117/73 08/13/20 10:12 67 99 08/13/20 10:07 68 99 08/13/20 10:04 71 116/65 08/13/20 10:02 84 99 08/13/20 09:57 73 100 08/13/20 09:55 74 18 116/57 L 08/13/20 09:52 77 99 08/13/20 09:47 77 99 08/13/20 09:45 18 08/13/20 09:44 77 123/59 L 08/13/20 09:42 83 98 08/13/20 09:37 78 98 08/13/20 09:35 71 18 121/59 L 08/13/20 09:32 75 98 08/13/20 09:27 78 98 08/13/20 09:25 77 18 118/67 08/13/20 09:22 78 96 08/13/20 09:17 90 98 08/13/20 09:15 86 20 130/64 08/13/20 09:12 80 98 08/13/20 09:07 78 97 08/13/20 09:05 77 18 126/60 08/13/20 09:02 83 96 08/13/20 08:56 77 98 08/13/20 08:55 36.4 C L 78 18 131/62 08/13/20 07:01 37.0 C 82 18 113/77 08/13/20 05:34 36.6 C 18 08/13/20 05:29 78 132/77 Transfer of Care Handoff Completed per policy Notes Mental Status: alert / awake / arousable and participated in evaluation Patient Amnestic to Procedure: Yes Nausea / Vomiting: adequately controlled Pain: adequately controlled Airway Patency, RR, SpO2: stable & adequate BP & HR: stable & adequate Hydration State: stable & adequate Anesthetic Complications: no major complications apparent and Pt Satisfied with anesthetic care
[2020-08-13] MEDS: SIMETHICONE 80 MG CHEW PO SCH ×3 (15:18→20:44)
[2020-08-13] MEDS: DOCUSATE SODIUM 100 MG CAP PO SCH (20:44)
[2020-08-14] MEDS ORDERED: diphenhydrAMINE 50 MG/ML VIAL IV PRN (02:23)
[2020-08-14] MEDS ORDERED: PROMETHAZINE HCL 25 MG in SODIUM CHLORIDE 0.9% 50 ML IV PRN (02:23)
[2020-08-14] MEDS ORDERED: diphenhydrAMINE Capsule 25 MG CAP PO PRN (02:23)
[2020-08-14] MEDS ORDERED: ONDANSETRON INJ 2 MG/ML 2 ML VIAL IV PRN (02:23)
[2020-08-14] MEDS ORDERED: KETOROLAC 30 MG/ML VIAL IV PRN (02:23)
[2020-08-14] MEDS: LACTATED RINGER'S 1,000 ML IV SCH ×2 (03:08→10:00)
--- NOTE | 2020-08-14 05:49 | Obstetrical Progress Note ---
Date of Service <Alicia Nur DO - Last Filed: 08/14/20 07:04> August 14, 2020 Assessment & Plan <Alicia Nur DO - Last Filed: 08/14/20 07:04> (1) examination following delivery: 25 yo mother now POD #1 following repeat LTCS. GBS positive adequately treated, no complications. Ambulating to bathroom with mild pain; reasonable pain control with prn Tylenol/ibuprofen/Percocet. Admits to difficulty with with her first child and is trying again with this , will have consultants evaluate while in-house. No voiding issues. No BMs yet. Hgb trend 11.7 -> 10.7 since delivery. Continue routine care. Day #:: 1 Subjective <Alicia Nur DO - Last Filed: 08/14/20 07:04> Ambulation: ambulating normally Voiding: no voiding problems Passing Gas:: No Diet Tolerance:: regular diet Lochia:: Small Feeding Type:: breast feeding (with some difficulty) 25 yo repeat LTCS POD #1; no personal complaints. Ambulating to bathroom with mild pain; reasonable pain control with prn Tylenol/ibuprofen/Percocet. Admits to difficulty with with her first child and is trying again with this . No voiding issues. No BMs yet. Review of Systems Constitutional: denies fever, chills, sweats, headache Respiratory: denies SOB, difficulty breathing Cardiac: denies CP, chest palpitations, chest pressure Breast: denies breast pain : denies dysuria Physical Exam <Alicia Nur DO - Last Filed: 08/14/20 07:04> General: patient is alert and oriented, in NAD Cardiac: +S1/S2, no murmurs rubs or gallops Respiratory: lungs CTA b/l, no wheezes rales or rhonchi, no increased work of br eathing, symmetric chest rise, no respiratory distress Abdomen: soft, NT, +bowel sounds Uterus: uterine fundus firm, palpable below the umbilicus. Incision intact, non- tender, non-erythematous, no weeping from incision site Lower Extremities: no LE edema or swelling, no deep calf pain, Neri's sign negative b/l Results & Data ([facility]) <Alicia Nur DO - Last Filed: 08/14/20 07:04> Vital Signs (Past 12 Hours) Vital Signs Temp Pulse Resp BP Pulse Ox 08/14/20 04:15 36.6 C 80 18 98/63 L 08/14/20 02:15 16 97 08/14/20 01:30 18 97 08/14/20 00:30 19 97 08/13/20 23:30 36.8 C 75 16 91/55 L 95 08/13/20 22:30 16 96 08/13/20 21:10 16 96 08/13/20 20:15 18 98 08/13/20 19:30 37 C 78 18 106/67 99 08/13/20 19:15 18 99 08/13/20 18:30 20 98 <Jackie Lucas MD - Last Filed: 08/14/20 07:42> Co-Signing Physician Notes Resident Physician Supervision Note: I interviewed and examined the patient. Discussed with Dr. Nur and agree with findings and plan as documented in the note. Any exceptions or clarifications are listed here: POD1 from rLTCS/BTL, meeting milestones except not yet voided since smith removed. VSS, exam benign and wnl. Continue routine pp care, will need to f/u void Documented By: Jcakie Lucas MD Resident Activity Tracking <Alicia Nur DO - Last Filed: 08/14/20 07:04> Resident Involvement: Resident Care Provided Care Provided: OB Delivery
[2020-08-14 06:30] LABS: Basophils # (auto) 0.01 K/uL (0-0.2); Basophils % (auto) 0.1 %; Eosinophils # (auto) 0.11 K/uL (0-0.5); Eosinophils % (auto) 1.2 %; Hematocrit (blood only) 32.8 % (37-47); Hemoglobin 10.7 g/dL (12.0-16.0); Immature Granulocytes # (auto) 0.02 K/uL (0.00-0.02); Immature Granulocytes % (auto) 0.2 %; Lymphocytes # (auto) 0.99 K/uL (1.2-3.4); Lymphocytes % (auto) 11.1 %; Mean Corpuscular Hemoglobin 28.5 pg (25-34); Mean Corpuscular Hgb Conc 32.6 g/dL (32-36); Mean Corpuscular Volume 87.2 fL (80-100); Mean Platelet Volume 11.8 fL (7.4-10.4); Monocytes # (auto) 0.63 K/uL (0.11-0.59); Monocytes % (auto) 7.1 %; Neutrophils # (auto) 7.16 K/uL (1.4-6.5); Neutrophils % (auto) 80.3 %; Platelet Count 226 K/uL (130-400); RDW Coefficient of Variation 13.6 % (11.5-14.5); RDW Standard Deviation 43.2 fL (36.4-46.3); Red Blood Count 3.76 M/uL (4.2-5.4); White Blood Count 8.92 K/uL (4.8-10.8)
[2020-08-14] MEDS: oxyCODONE/ACETAMINOPHEN 5mg/325mg TAB PO PRN ×3 (08:03→21:28)
[2020-08-14] MEDS: FERROUS SULFATE 325 MG TAB PO SCH (08:03)
[2020-08-14] MEDS: PRENATAL VITAMIN 1 TAB PO SCH (08:03)
[2020-08-14] MEDS: SIMETHICONE 80 MG CHEW PO SCH ×4 (08:03→21:28)
[2020-08-14] MEDS: DOCUSATE SODIUM 100 MG CAP PO SCH ×2 (08:03→21:29)
[2020-08-14] MEDS: IBUPROFEN 600 MG TAB PO PRN ×3 (08:04→21:29)
[2020-08-14] MEDS ORDERED: bisacodyL 5 MG TABEC PO SCH (20:00)
[2020-08-15] MEDS: IBUPROFEN 600 MG TAB PO PRN ×2 (03:34→08:17)
[2020-08-15] MEDS: oxyCODONE/ACETAMINOPHEN 5mg/325mg TAB PO PRN ×2 (03:34→08:18)
--- NOTE | 2020-08-15 06:12 | Obstetrical Progress Note ---
Date of Service <Alicia Nur - Last Filed: 08/15/20 07:20> August 15, 2020 Assessment & Plan <Alicia Nur - Last Filed: 08/15/20 07:20> (1) examination following delivery: 25 yo mother now POD #2 following repeat LTCS. GBS positive adequately treated, no complications. Ambulating to bathroom with mild pain; reasonable pain control with prn Tylenol/ibuprofen/Percocet. No voiding issues. No BMs yet but passing gas. Hgb trend 11.7 -> 10.7 -> 11.2 since delivery. Patient will be discharged today with routine follow up. Subjective <Alicia Nur - Last Filed: 08/15/20 07:20> 25 yo female ; POD # 2 following rLTCS at 39 weeks; doing well this AM; some abdominal cramping/pain; voiding well, passing gas but no BM; tolerating meals overnight, able to ambulate some within the room. Review of Systems Constitutional: denies fever, chills, sweats, headache Respiratory: denies SOB, difficulty breathing Cardiac: denies CP, chest palpitations, chest pressure Breast: denies breast pain : denies dysuria Physical Exam <Alicia Nur - Last Filed: 08/15/20 07:20> General: patient is alert and oriented, in NAD Cardiac: +S1/S2, no murmurs rubs or gallops Respiratory: lungs CTA b/l, no wheezes rales or rhonchi, no increased work of breathing, symmetric chest rise, no respiratory distress Abdomen: soft, NT, +bowel sounds Uterus: uterine fundus firm, palpable below the umbilicus. Incision intact, non- tender, non-erythematous, no weeping from incision site Lower Extremities: no LE edema or swelling, no deep calf pain, Neri's sign negative b/l Results & Data ([facility]) <Alicia Ricotani - Last Filed: 08/15/20 07:20> Vital Signs (Past 12 Hours) Vital Signs Temp Pulse Resp BP Pulse Ox 08/14/20 23:00 36.4 C L 70 18 129/87 99 08/14/20 19:40 36.6 C 68 18 119/83 98 <Akila Thurman MD, FACOG - Last Filed: 08/15/20 07:26> Co-Signing Physician Notes Resident Physician Supervision Note: I interviewed and examined the patient. Discussed with Dr. Eckert and agree with findings and plan as documented in the note. Any exceptions or clarifications are listed here: Doing well. Desires d/c. Instructions reviewed. f/u 6 weeks. Documented By: Akila Thurman MD, FACOG Resident Activity Tracking <Alicia Nur DO - Last Filed: 08/15/20 07:20> Resident Involvement: Resident Care Provided Care Provided: OB Delivery
[2020-08-15 07:02] LABS: Hematocrit (blood only) 35.4 % (37-47); Hemoglobin 11.2 g/dL (12.0-16.0)
[2020-08-15] MEDS: PRENATAL VITAMIN 1 TAB PO SCH (08:17)
[2020-08-15] MEDS: SIMETHICONE 80 MG CHEW PO SCH (08:17)
[2020-08-15] MEDS: FERROUS SULFATE 325 MG TAB PO SCH (08:17)
[2020-08-15] MEDS: DOCUSATE SODIUM 100 MG CAP PO SCH (08:17)
[2020-08-15] MEDS ORDERED: bisacodyL 10 MG SUPP PR PRN (08:51)
--- NOTE | 2020-08-17 09:07 | Discharge Summary ---
Date of Service August 17, 2020 Admission HPI Per Admitting Provider 25 y/o at 38 6/7 wga today w/ VARUN 7/3 by LMP 11/11 presents for pre-op for scheduled repeat CS and BTL on 08/13. 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 - pCS at 38 wks for NRFHT G2 2018 SAB G3 2020 SAB G4 current Menarche 16, q28-30d cycles Denies hx STIs Denies hx abnl pap, last 01/2020 neg cytology Admission Exam (Per Admitting) Constitutional WD/WN, vitals as above Respiratory normal respiratory effort; no respiratory distress and no labored breathing Gastrointestinal (Abdomen) Inspection/Auscultation: abdomen normal to inspection Percussion/Palpation: abdomen soft; abdomen nontender and no guarding Genitourinary OB Exam Abdomen: + fundal height (38) and + heart tones (150) Discharge Data Consultations 08/13/20 05:23 Consult Anesthesiology Stat Procedures Performed Operation Date: 08/13/20 07:30 Actual Procedures p Section in OR # 3; Live Female Infant at 0803(Bilateral) - Jackie Lucas MD Hospital Course (1) Encounter for supervision of normal in multigravida, antepartum: Pt presented to hospital for planned procedure as above, see operative report for details. The patient did well and was stable for discharge on POD2 Coding Level of Care Code None Diagnoses Encounter for supervision of normal in multigravida, antepartum Z34.80
== END 2020-08-15 13:10 | disposition home or self-care (01) | DRG 785 ==
LOC: 4S1 05:21 → 4S2 12:51 → EDSTATUS 08-17 08:55